=== PATIENT | male | born 1965 | race African-American/Black ===

== ENCOUNTER 2017-11-20 19:31 | Inpatient (IN) | payer OTHER ==
[~2017-11-20] VITALS: Ht 167.6 cm; Wt 83.0 kg
--- NOTE | ~2017-11-20 | EKG ---
[place] [address] [facility] [place] [address] ELECTROCARDIOGRAM REPORT Name: GABRIELLA NGUYEN Room #: 355-P [facility] M.R.#: [id number] Admission: 11/20/17 Attend Phys: Reji Rod DO Discharge: Date of : 63 Report #: [id number] THIS REPORT FOR: //name// [facility] ED Test Date: 2017-11-20 Test Time: 19:41:15 Pat Name: GABRIELLA NGUYEN Department: Room: [facility] Gender: M Vp Publisher Development: MZOOPing : 1965 Requested By: Duke Fuller Order Number: [id number] MD: Amos Marr Measurements Intervals [place] Rate: 90 P: -3 WV: 116 QRS: 34 QRSD: 81 T: -35 QT: 352 QTc: 431 Interpretive Statements Sinus rhythm Borderline short W[place] interval T abnormalities, inferior leads Borderline ST elevation, anterior leads No previous ECG available for comparison Electronically Signed On 11-21-2017 8:25:24 CDT by Amos Marr [email or web address] <ELECTRONICALLY SIGNED> By: Amos Marr MD, [facility] 11/21/17 0825 40 40 Amos Marr MD, [facility] /EPI
--- NOTE | ~2017-11-20 | EKG ---
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 : 1965 Requested By: Leticia Milton Order Number: [id number] MD: Raf Morgan Measurements Intervals [place] Rate: 72 P: 17 TN: 144 QRS: 34 QRSD: 90 T: -17 QT: 404 QTc: 443 Interpretive Statements Sinus rhythm Nonspecific T abnormalities, inferior leads ST elev, probable normal early repol pattern Baseline wander in lead(s) V3,V4 No previous ECG available for comparison Electronically Signed On 11-21-2017 16:11:49 CDT by Raf Morgan [email or web address] <ELECTRONICALLY SIGNED> By: Raf Morgan MD 11/21/17 1611 0658 0658 Raf Morgan MD /EPI
--- NOTE | ~2017-11-20 | EXE ---
[facility] [address] [place] [address] STRESS ECHOCARDIOGRAM Name: GABRIELLA NGUYEN Room #: 355-P [facility] IN M.R.#: [id number] Admission: 11/20/17 Attend Phys: Reji Rod, Discharge: Date of : 63 Date of Service: 11/21/17 1530 Report #: [id number] THIS REPORT FOR: //name// APPROVED REPORT Study performed: 11/21/2017 13:31:03 Exam: Stress Echocardiogram Indication: Chest pain Patient Location: Echo lab Stress Nurse: Debora Peters RN Room #: 355 Status: routine Ht: 5 ft 6 in HR: 96 bpm BP: 131/77 mmHg Medical History Medical History: Diabetes, HTN Medications: Lisinopril Allergies: No known drug allergies Procedure The patient underwent an Exercise Stress Test using the Yaya Protocol. Blood pressure, heart rate, and EKG were monitored. An Echocardiogram was performed by senior maintenance technician in four stages in quad fashion. At peak stress, four selected images were obtained and placed side by side with resting images for comparison. Stress Test Details Stress Test: Exercise stress testing was performed using a Yaya protocol. HR Resting HR: 83 bpm Max Heart Rate (APMHR): 167 bpm Max HR Achieved: 164 bpm Target HR (85% APMHR): 141 bpm % of APMHR: 98 Recovery HR: 100 bpm HR response to stress: Normal HR response to stress BP Resting BP: 131/77 mmHg Max BP: 180/90 mmHg Recovery BP: 120/64 mmHg ECG Resting ECG: Sinus Rhythm, NSSTT changes [facility] [address] [place] [address] STRESS ECHOCARDIOGRAM Name: GABRIELLA NGUYEN Room #: 355-P [facility] IN ..#: [id number] Admission: 11/20/17 Attend Phys: Reji Rod, Discharge: Date of : 63 Date of Service: 11/21/17 1530 Report #: [id number] Stress ECG: Sinus Rhythm, NSSTT changes ST Change: Non-ischemic Maximum ST Deviation: 0 mm Clinical Reason for Termination: Maximal effort Stress Symptoms: Fatigue Exercise duration: 6 min 33 sec Highest Stage Achieved: Stage 3: 3.4 mph at 14% grade. Exercise capacity: 8.4 METs Pre-Stress Echo The resting Echocardiogram showed normal left ventricular contractility with an estimated Ejection Fraction of about 60-65%. Normal wall motion in all segments on baseline images. Post-Stress Echo The stress Echocardiogram showed normal left ventricular contractility with an estimated Ejection Fraction of about >70%. Normal augmentation of wall motion in all segments on post stress images. Clinical No clinical or ECG evidence for ischemia. Conclusion Clinical Response: Non-ischemic Exercise Capacity: Below Average Stress ECG Response: Non-ischemic Stress Echo Images: Non-ischemic No clinical, EKG or echocardiographic evidence for ischemia. Other Information Study Quality: Good <Conclusion> No clinical, EKG or echocardiographic evidence for ischemia. <ELECTRONICALLY SIGNED> By: Sunil Bales MD 11/21/17 1530 1530 1530 Sunil Bales MD /INF
[2017-11-20 19:45] VITALS: BP 155/92
[2017-11-20] MEDS ORDERED: LISINOPRIL10 MG (19:59)
[2017-11-20] MEDS ORDERED: METFORMIN HCL500 MG PO (20:00)
[2017-11-20] MEDS ORDERED: JANUVIA100 MG PO (20:00)
[2017-11-20 20:04] LABS: ABSOLUTE NEUTROPHILS 3.7 thou/uL (1.4-8.2); BASOPHILS 0.8 % (0.0-2.0); EOSINOPHILS 3.1 % (0.0-3.0); HEMATOCRIT 43.7 % (42.0-52.0); HEMOGLOBIN 15.4 gm/dL (14.0-18.0); LYMPHOCYTES 42.7 % (24.0-44.0); MCH 31.9 pg (26.0-34.0); MCHC 35.3 g/dL (28.0-37.0); MCV 90.6 fL (80.0-100.0); MONOCYTES 8.7 % (1.0-8.0); PLATELET COUNT 197 thou/uL (150-400); POLYS 44.7 % (36.0-66.0); RBC 4.82 mil/uL (4.50-6.00); RDW 12.3 % (10.5-14.5); WBC 8.3 thou/uL (4.0-11.0)
[2017-11-20 20:12] LABS: ANION GAP 8 mmol/L (7-16); BUN 12 mg/dL (7-18); CALCIUM 9.4 mg/dL (8.5-10.1); CHLORIDE 102 mmol/L (98-107); CO2 26 mmol/L (21-32); CREATININE 0.9 mg/dL (0.7-1.3); GLUCOSE 310 mg/dL (74-106); POTASSIUM 3.9 mmol/L (3.5-5.1); SODIUM 136 mmol/L (136-145)
[2017-11-20 20:19] LABS: APTT 26.1 Seconds (24.5-32.8)
[2017-11-20 20:21] LABS: ALBUMIN 3.6 g/dL (3.4-5.0); MAGNESIUM 1.8 mg/dL (1.8-2.4); SGOT 40 U/L (15-37); SGPT 69 U/L (30-65); TOTAL BILIRUBIN 0.3 mg/dL (<0.1-1.0); TOTAL PROTEIN 7.8 g/dL (6.4-8.2); TROPONIN-I < 0.04 ng/mL (<0.06)
[2017-11-20 21:46] VITALS: BP 157/78
[2017-11-20 22:00] VITALS: BP 156/95
[2017-11-20 23:55] VITALS: BP 131/74
[2017-11-21 04:29] VITALS: BP 166/93
[2017-11-21 08:01] LABS: CHOLESTEROL 171 mg/dL (<200); HDL CHOLESTEROL 33 mg/dL (>40); LDL CHOLESTEROL 99 mg/dL (<100); TC:HDL 5.2 Ratio (Not establshd); TRIGLYCERIDE 199 mg/dL (<150); VLDL 40 mg/dL (<40)
[2017-11-21 08:22] VITALS: BP 142/86
[2017-11-21 12:03] VITALS: BP 123/74
[2017-11-21] MEDS ORDERED: ASPIRIN325 PO (16:01)
[2017-11-21 16:08] VITALS: BP 123/74
[2017-11-21 16:23] VITALS: BP 123/74
[2017-11-21 16:55] VITALS: BP 135/72
[2017-11-21 22:07] LABS: GLYCOHEMOGLOBIN (HGB A1C) 9.7 % (4.8-5.6)
== END 2017-11-21 17:34 | disposition home or self-care (01) | DRG 313 ==
LOC: ER 19:31 → EROBS 21:38 → 3W 21:38 → EROBS 21:57 → 3W 21:59 → ENTRNSPT 11-21 17:15 → 3W 11-21 17:34
PROVIDERS: Emergency Medicine; Nurse Practitioner Acute Care
DX: R07.9 Chest pain, unspecified (principal); E11.65 Type 2 diabetes mellitus with hyperglycemia; I10 Essential (primary) hypertension; E11.42 Type 2 diabetes mellitus with diabetic polyneuropathy; Z79.899 Other long term (current) drug therapy; Z79.82 Long term (current) use of aspirin; Z83.3 Family history of diabetes mellitus
CPT/HCPCS: 10879

== ENCOUNTER 2020-11-22 16:01 | Emergency (ER) | payer OTHER ==
[~2020-11-22] VITALS: Ht 170.2 cm; Wt 81.7 kg
[~2020-11-22 16:01] MED LIST: ASPIRIN325 PO; JANUVIA100 MG PO; LISINOPRIL10 MG PO; METFORMIN HCL500 MG PO
[2020-11-22 16:44] LABS: ABSOLUTE NEUTROPHILS 4.5 thou/uL (1.4-8.2); BASOPHILS 0.6 % (0.0-2.0); HEMATOCRIT 39.1 % (42.0-52.0); HEMOGLOBIN 13.5 gm/dL (14.0-18.0); LYMPHOCYTES 30.7 % (24.0-44.0); MCH 31.6 pg (26.0-34.0); MCHC 34.4 g/dL (28.0-37.0); MCV 91.6 fL (80.0-100.0); MONOCYTES 10.1 % (1.0-8.0); PLATELET COUNT 212 thou/uL (150-400); POLYS 56.6 % (36.0-66.0); RBC 4.26 mil/uL (4.50-6.00); RDW 13.5 % (10.5-14.5)
[2020-11-22 16:53] LABS: ANION GAP 10 mmol/L (7-16); BUN 14 mg/dL (7-18); CALCIUM 8.5 mg/dL (8.5-10.1); CHLORIDE 102 mmol/L (98-107); CO2 23 mmol/L (21-32); GLUCOSE 301 mg/dL (74-106); POTASSIUM 4.2 mmol/L (3.5-5.1); SODIUM 135 mmol/L (136-145)
[2020-11-22 17:03] LABS: SGOT 21 U/L (15-37); SGPT 32 U/L (16-63); TOTAL BILIRUBIN 0.5 mg/dL (0.2-1.0); TOTAL PROTEIN 7.6 g/dL (6.4-8.2); TROPONIN-I <0.06 ng/mL (<0.06)
[2020-11-22] MEDS ORDERED: NORCO 10-325 T1 EACH PO (19:22)
[2020-11-22] MEDS ORDERED: CYCLOBENZAPRINE5 MG PO (19:22)
[2020-11-22 19:48] VITALS: BP 173/93
--- NOTE | 2020-11-23 07:03 | EKG ---
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 : 1965 Requested By: Nasir Franz Order Number: [id number] MD: Humberto Curry Measurements Intervals [place] Rate: 89 P: 51 RI: 136 QRS: 33 QRSD: 76 T: -33 QT: 353 QTc: 430 Interpretive Statements Sinus rhythm Probable left atrial enlargement Nonspecific T abnormalities, inferior leads Compared to ECG 11/21/2017 06:58:54 ST (T wave) deviation no longer present T-wave abnormality still present Electronically Signed On 11-23-2020 7:03:12 CDT by Humberto Curry [email or web address] <ELECTRONICALLY SIGNED> By: Humberto Curry MD, [facility] 11/23/20 0703 1624 1624 Humberto Curry MD, [facility] /EPI
== END 2020-11-22 19:53 | disposition home or self-care (01) ==
LOC: ER 16:01
PROVIDERS: Physician Assistant
DX: M54.42 Lumbago with sciatica, left side (principal); M48.07 Spinal stenosis, lumbosacral region; R07.89 Other chest pain; R07.81 Pleurodynia; R06.02 Shortness of breath; I10 Essential (primary) hypertension; E11.40 Type 2 diabetes mellitus with diabetic neuropathy, unspecified; Z79.899 Other long term (current) drug therapy

== ENCOUNTER 2021-06-23 14:37 | Emergency (ER) | payer OTHER ==
[~2021-06-23] VITALS: Ht 167.6 cm; Wt 81.7 kg
[~2021-06-23 14:37] MED LIST changes: +CYCLOBENZAPRINE5 MG PO; +NORCO 10-325 T1 EACH PO
[2021-06-23 14:50] VITALS: BP 156/66
== END 2021-06-23 15:53 | disposition home or self-care (01) ==
LOC: ER 14:37
DX: M25.422 Effusion, left elbow (principal); I10 Essential (primary) hypertension; E11.40 Type 2 diabetes mellitus with diabetic neuropathy, unspecified; Z79.84 Long term (current) use of oral hypoglycemic drugs; Z79.891 Long term (current) use of opiate analgesic; Z79.899 Other long term (current) drug therapy